=== PATIENT | male | born 1970 | race Caucasian/White ===

== ENCOUNTER → 2018-10-15 10:18 | Outpatient (CLI) | payer OTHER, SELFPAY ==
[2018-10-15 18:31] LABS: Alanine Aminotransferase 56 U/L (12-78); Albumin Level 4.2 gm/dL (3.4-5.0); Albumin/Globulin Ratio 1.3 (1.1-1.8); Alkaline Phosphatase 46 U/L (46-116); Anion Gap 13.1 mEq/L (5-15); Aspartate Amino Transferase 13 U/L (15-37); Bilirubin,Total 0.5 mg/dL (0.2-1.0); Blood Urea Nitrogen 15 mg/dL (7-18); Calcium 9.2 mg/dL (8.5-10.1); Carbon Dioxide 27 mmol/L (21.0-32.0); Chloride 105 mmol/L (98-107); Chol/HDL Ratio 6.7 (1-3.5); Cholesterol 128 mg/dL (140-200); Creatinine,Serum 1.14 mg/dL (0.70-1.30); Estimated Glomerular Filt Rate 69 ml/min (>60); GFR (African American) 83 ML/MIN (>60); Globulin 3.3 gm/dl (1.3-3.2); Glucose 91 mg/dL (74-106); HDL Cholesterol 19 mg/dL (27-67); LDL Cholesterol 74 mg/dL (0-130); Potassium 5.1 mmoL/L (3.5-5.1); Sodium 140 mmol/L (136-145); Total Protein,Serum 7.5 gm/dL (6.4-8.2); Triglycerides 173 mg/dL (30-200); VLDL Cholesterol 35 mg/dL (0-40)
== END ==
PROVIDERS: Visit Provider Nurse Practitioner Family
DX: Z00.00 Encounter for general adult medical examination without abnormal findings (principal); E78.2 Mixed hyperlipidemia; G44.1 Vascular headache, not elsewhere classified
CPT/HCPCS: 36415; 80053; 80061

== ENCOUNTER 2019-08-27 14:02 | Emergency (ER) | payer OTHER, SELFPAY ==
[2019-08-27 14:23] VITALS: BP 144/101; PULSE 65; RESP 18; TEMP 36.7; O2SAT 99; BMI 39.1
--- NOTE | 2019-08-27 14:31 | HMH.EDUTC ---
[facility] [place] Clinical Impression: Encounter for laboratory testing for COVID-19 virus Disposition: Home, Self-Care Condition on Discharge: Good Instructions: Preventing the Spread of Coronavirus Discharge Instructions Additional Instructions: Go home and self quarantine until you get your test results back and they are negative *You was given handout on how to Quarantine if you have or awaiting test results for COVID 19 FOllow up with Family doctor if no improvement or any worsening of symptoms in the next 48-72 hours Call back to the [facility] on tomorrow evening or Saturday to see if your test results are back and the result Straight to ER if any life threatening symptoms Your blood pressure was elevated in the [facility] make sure to follow up with your family doctor for further evaluation and treatment Referrals: Tariq Leonard MD [Primary Care Provider] - As needed Forms: Work/School Release Time of Disposition: 14:42 Medical Decision Making - Ramirez Inquiry Pt receiving controlled substance: No Ramirez was queried for this patient: No Vital Signs: 08/27/19 14:23 08/27/19 14:50 Temperature 98.1 F 98.1 F Temperature Source Oral Pulse Rate 65 Pulse Rate [Right Brachial] 65 Respiratory Rate 18 18 Blood Pressure 144/101 H Blood Pressure [Right Arm] 144/101 H Blood Pressure Mean [Right Arm] 115 Blood Pressure Source [Right Arm] Automatic Cuff Blood Pressure Position [Right Arm] Sitting 02 Sat by Pulse Oximetry 99 Oxygen Delivery Method Room Air Orders (Tests/Meds): ORDERS Category Date Time Status SARS-CoV-2, [facility] Stat Lab 08/27/19 14:21 Ordered [facility] [place] HPI - General Stated complaint: wants to be tested for covid Time Seen by Provider: 08/27/19 14:31 Mode of Arrival: Ambulatory Source of Information: Patient Limitations: No Limitations Description of Symptoms (Recalled from Triage Doc. by RN): PATIENT IS REQUESTING COVID TEST. STATES HE PLAYED GOLF WITH A FRIEND ON 08/15/19; THAT FRIEND WAS TESTED FOR COVID ON 08/25/19 AND WAS POSITIVE. HE HAS NOT BEEN AROUND THAT FRIEND SINCE 08/15/19, HOWEVER HAS SECONDARY EXPOSURE. PATIENT IS ASYMPTOMATIC HEENT Symptoms (Recalled from RN notes): No Resp Symptoms (Recalled from RN notes): No Skin Symptoms (Recalled from RN notes): No MS Symptoms (Recalled from RN notes): No Functional Status (Recalled from RN notes): WNL - History of Present Illness Provider Complaint: Patient states that he played golf with a kar on 08/15/19 that wasnt having any symptoms but on 08/25/19 was tested for COVID and was positive State that he hasnt been around the kar since the but has been around others that has been within close proximity to him States that he wants to get tested for COVID but not having any symptoms at this time - Related Data Home Medications Medication Instructions Recorded Confirmed aspirin 81 mg tablet,delayed 81 mg PO DAILY 12/02/17 03/26/19 release atorvastatin 20 mg tablet 20 mg PO DAILY 12/02/17 03/26/19 citalopram 20 mg tablet 20 mg PO DAILY 12/02/17 03/26/19 fenofibrate 50 mg capsule 50 mg PO DAILY 12/02/17 03/26/19 propranolol 20 mg tablet 20 mg PO BID 12/02/17 03/26/19 fenofibric acid (choline) 135 mg 135 mg PO DAILY cap 03/26/19 03/26/19 capsule,delayed release Previous Rx's Medication Instructions Recorded amoxicillin 500 mg capsule 500 mg PO Q12H 10 Days #20 cap 03/26/19 oiutthqnartumgv-fxdwdxbyoctdnwr-BB 10 ml PO Q4-6H PRN 7 Days #118 ml 03/26/19 2 mg-30 mg-10 mg/5 mL oral syrup Allergies Allergy/AdvReac Type Severity Reaction Status Date / Time bee pollen Allergy Verified 03/26/19 19:07 poison maurilio extract Allergy Verified 03/26/19 19:07 - Worker's Comp Is this a Worker's Comp case?: No [facility] History - Hepatitis A Screen Drug use history?: No High risk sexual behaviors?: No History of sexually transmitted infection?: No Currently employed?: No Childcare worker?: No Do you have indoor plumbing?: Yes D
[2019-08-27 14:50] VITALS: BP 144/101; PULSE 65; RESP 18; TEMP 36.7; O2SAT 99
[2019-08-27 14:54] VITALS: BP 125/100
[2019-08-29 13:48] LABS: Covid-19 Nasal PCR Sendout Lex Not Detected
== END 2019-08-27 14:55 | disposition home or self-care (01) ==
PROVIDERS: Emergency Provider Nurse Practitioner; PCP Internal Medicine Adolescent Medicine
DX: Z03.818 Encounter for observation for suspected exposure to other biological agents ruled out (principal)
CPT/HCPCS: 99202; U0004

== ENCOUNTER → 2020-10-04 07:04 | Outpatient (CLI) | payer OTHER, SELFPAY ==
[2020-10-04 08:17] LABS: Basophils % 0.5 % (0.1-2.0); Eosinophils # 0.1 K/mm3 (0.0-0.4); Eosinophils % 1.2 % (0.1-12.0); Hematocrit 40.2 % (42.0-52.0); Hemoglobin 13.4 g/dL (14.1-18.0); Lymphocytes # 3.6 K/mm3 (0.7-4.5); Lymphocytes % 48.1 % (10-50); Mean Corpuscular HGB Conc 33.2 g/dL (31.8-35.4); Mean Corpuscular Hemoglobin 30.2 pg (27.0-31.2); Mean Platelet Volume 7.8 fl (7.4-10.4); Monocytes # 0.5 K/mm3 (0.1-1.0); Monocytes % 6.9 % (1.7-9.3); Neutrophils # 3.3 K/mm3 (1.8-7.8); Neutrophils % 43.3 % (37.0-80.0); Platelet Count 284 K/mm3 (142-424); Red Blood Count 4.42 M/mm3 (4.60-6.20); Red Cell Distribution Width 13.2 % (11.5-17.5); White Blood Count 7.6 K/mm3 (4.8-10.8)
[2020-10-04 08:40] LABS: Chloride 107 mmol/L (98-107); Potassium 4.3 mmoL/L (3.5-5.1); Sodium 139 mmol/L (136-145)
[2020-10-04 08:42] LABS: Blood Urea Nitrogen 22 mg/dl (9-20); Estimated Glomerular Filt Rate 71 ml/min (>60); GFR (African American) 86 ML/MIN (>60)
[2020-10-04 08:43] LABS: Alanine Aminotransferase 27 U/L (12-78); Albumin Level 4.1 g/dl (3.5-5.0); Albumin/Globulin Ratio 1.5 (1.1-1.8); Alkaline Phosphatase 49 U/L (38-126); Anion Gap 13.3 mEq/L (5-15); Aspartate Amino Transferase 14 U/L (17-59); Bilirubin,Total 0.6 mg/dl (0.2-1.3); Calcium 9.1 mg/dl (8.4-10.2); Carbon Dioxide 23 mmol/L (22.0-30.0); Cholesterol 119 mg/dl (140-200); Globulin 2.7 g/dL (1.3-3.2); Glucose 109 mg/dl (74-100); Total Protein,Serum 6.8 g/dl (6.3-8.2); Triglycerides 276 mg/dl (30-150); VLDL Cholesterol 55 mg/dL (0-40)
[2020-10-04 08:44] LABS: Chol/HDL Ratio 6.3 (1-3.5); HDL Cholesterol 19 mg/dl (40-60)
[2020-10-04 08:54] LABS: Direct LDL Cholesterol 59.99 mg/dL (100-129)
[2020-10-04 09:14] LABS: Thyroid Stimulating Hormone 2.55 uIU/mL (0.465-4.68)
[2020-10-05 12:27] LABS: Testosterone,Total 286 ng/dL (264-916)
== END ==
PROVIDERS: Visit Provider Nurse Practitioner Family
DX: Z00.00 Encounter for general adult medical examination without abnormal findings (principal); E78.2 Mixed hyperlipidemia; G44.1 Vascular headache, not elsewhere classified; R68.82 Decreased libido; N52.9 Male erectile dysfunction, unspecified
CPT/HCPCS: 36415; 80053; 80061; 84403; 84443; 85025

== ENCOUNTER → 2021-02-06 07:45 | Outpatient (CLI) | payer OTHER, SELFPAY | PROVIDERS: Visit Provider Surgery | DX: Z01.812 Encounter for preprocedural laboratory examination (principal); Z11.52 Encounter for screening for COVID-19; Z12.11 Encounter for screening for malignant neoplasm of colon | CPT/HCPCS: C9803; U0003; U0005 ==

== ENCOUNTER 2021-02-08 06:28 | Day surgery (SDC) | payer OTHER, SELFPAY ==
[2021-01-31 10:27] VITALS: BMI 39.1
[2021-02-08] VITALS (7 sets, daily range): BP systolic 128–145; BP diastolic 81–89; PULSE 46–63; RESP 16–18; TEMP 36.1–36.6; O2SAT 91–98
--- NOTE | 2021-02-08 07:01 | P.PN_ITS ---
[facility] Anesthesia Checklist - Patient Identification Patient Identification: Arm Band - Structural Data Admitted From: Home Planned Operative Procedure/s: Colonoscopy Consent for Planned Operative Procedure(s) Verified: Yes - NPO Status Verified Time NPO: 00:00 - Airway Assessment C-Spine Mobility Assessed: Yes TMJ Mobility Assessed: Yes Dentition: Good Dentition - Neurological Assessment Level of Consciousness: Awake Hx Seizures: No Numbness or tingling in extremities: No - Anesthesia Plan Anesthesia Risk discussed: Yes Anesthesia Plan: Verified ASA Class: II Anesthesia Type: MAC [facility] History I have reviewed the patient's past medical history: Yes Medical History: Reports:: Anxiety, Hyperlipidemia, Hypertension, Migraine Denies:: Cancer, Diabetes Mellitus Type 1, Diabetes Mellitus Type 2, Internal Pacemaker, MRSA, Seizures *Have you ever received a pneumonia vaccine?: No *Have you received a flu vaccine this season?: Yes Anesthesia experience/problems:: None Other Surgeries: Yes: No Previous Surgery, Cholecystectomy. No: Pacemaker Amputation: No Fractures: Yes - *Social History Last grade of school completed: Advanced degree Smoking Status: Never smoker Alcohol Intake: current Alcohol Intake Frequency:: holidays/special occasions only Substance Use Type: denies use *Occupational Status:: employed Housing: house Household Members: family *Travel in the last 8 weeks: None - Psychiatric History Pschychiatric History:: Reports:: Anxiety Family Hx:: No significant family history
--- NOTE | 2021-02-08 08:02 | HMH.SCOPE ---
- Procedure: Date: 02/08/21 Patient Date of :: 1970 Procedure Performed:: Total colonoscopy to terminal ileum with polypectomy x3 using snare Indications:: Patient is a 50-year-old male referred by Dr. Hammonds for initial screening colonoscopy Performing Provider:: Franky Solorio MD Referring Provider:: Tariq Leonard MD Sedation:: MAC sedation Procedure:: Patient was taken to endoscopy procedure room. He was positioned in lateral decubitus position. Adequate intravenous sedation was achieved with anesthesia titration of propofol. Variable stiffness Olympus colonoscope was inserted via the anus. It was advanced to the cecum with some minor difficulty due to some floppiness redundancy of the sigmoid colon. Ultimately the cecum was intubated. Ileocecal valve and appendiceal orifice were clearly identified. Colonoscope was advanced into the terminal ileum which appeared grossly normal. Colonic preparation was good and visualization was good. Colonoscope was slowly withdrawn through the colon with careful surveillance. In the proximal transverse colon distal to the hepatic flexure there was a moderate adenomatous polyp removed with cold cutting snare. In the descending colon there was a tiny diminutive polyp removed with cold snare. In the sigmoid colon there was a moderate adenomatous appearing polyp removed with cold snare. Retroflexion within the rectum revealed nonbleeding internal hemorrhoids. Colonoscope was withdrawn. Findings:: Polyps as noted above Specimens:: Polyps Recommendations:: Pending pathology repeat colonoscopy likely 3 years Complications:: None immediately apparent Estimated blood obtained (mL): 3
== END 2021-02-08 09:05 | disposition home or self-care (01) ==
LOC: OUTP 06:29
PROVIDERS: PCP Internal Medicine Adolescent Medicine; Visit Provider Surgery
PROC: 0DJD8ZZ Inspection of Lower Intestinal Tract, Via Natural or Artificial Opening Endoscopic (ICD-10-PCS; CPT 45385; principal; 2021-02-08 07:30)
DX: Z12.11 Encounter for screening for malignant neoplasm of colon (principal); K63.5 Polyp of colon; K56.2 Volvulus; K64.0 First degree hemorrhoids; F41.9 Anxiety disorder, unspecified; E78.5 Hyperlipidemia, unspecified; I10 Essential (primary) hypertension; G43.909 Migraine, unspecified, not intractable, without status migrainosus; Z79.82 Long term (current) use of aspirin; Z79.899 Other long term (current) drug therapy
CPT/HCPCS: 45385

== ENCOUNTER → 2021-03-06 13:40 | Outpatient (CLI) | payer OTHER, SELFPAY | PROVIDERS: PCP Radiology Diagnostic Radiology; Visit Provider Nurse Practitioner | DX: U07.1 COVID-19 (principal) | CPT/HCPCS: C9803; U0003; U0005 ==

== ENCOUNTER → 2021-10-03 07:35 | Outpatient (CLI) | payer OTHER, SELFPAY ==
[2021-10-03 08:49] LABS: Basophils # 0.1 K/mm3 (0-0.2); Basophils % 1.2 % (0.1-2.0); Eosinophils # 0.2 K/mm3 (0.0-0.4); Eosinophils % 2.5 % (0.1-12.0); Hematocrit 41.6 % (42.0-52.0); Hemoglobin 13.5 g/dL (14.1-18.0); Lymphocytes # 2.9 K/mm3 (0.7-4.5); Lymphocytes % 48.9 % (10-50); Mean Corpuscular HGB Conc 32.4 g/dL (31.8-35.4); Mean Corpuscular Hemoglobin 31.1 pg (27.0-31.2); Mean Corpuscular Volume 95.9 fl (80-94); Mean Platelet Volume 8.2 fl (7.4-10.4); Monocytes # 0.4 K/mm3 (0.1-1.0); Monocytes % 7.2 % (1.7-9.3); Neutrophils # 2.4 K/mm3 (1.8-7.8); Neutrophils % 40.2 % (37.0-80.0); Platelet Count 273 K/mm3 (142-424); Red Blood Count 4.33 M/mm3 (4.60-6.20); White Blood Count 5.9 K/mm3 (4.8-10.8)
[2021-10-03 09:03] LABS: Alanine Aminotransferase 41 U/L (12-78); Albumin Level 3.9 g/dl (3.5-5.0); Albumin/Globulin Ratio 1.5 (1.1-1.8); Alkaline Phosphatase 51 U/L (38-126); Anion Gap 9.5 mEq/L (5-15); Aspartate Amino Transferase 19 U/L (17-59); Bilirubin,Total 0.3 mg/dl (0.2-1.3); Blood Urea Nitrogen 17 mg/dl (9-20); Calcium 8.9 mg/dl (8.4-10.2); Carbon Dioxide 28 mmol/L (22.0-30.0); Chloride 107 mmol/L (98-107); Chol/HDL Ratio 6.2 (1-3.5); Cholesterol 123 mg/dl (140-200); Estimated Glomerular Filt Rate 79 ml/min (>60); GFR (African American) 96 ML/MIN (>60); Globulin 2.6 g/dL (1.3-3.2); Glucose 108 mg/dl (74-100); HDL Cholesterol 20 mg/dl (40-60); Potassium 4.5 mmoL/L (3.5-5.1); Sodium 140 mmol/L (136-145); Total Protein,Serum 6.5 g/dl (6.3-8.2); Triglycerides 179 mg/dl (30-150); VLDL Cholesterol 36 mg/dL (0-40)
[2021-10-03 09:21] LABS: Hemoglobin A1C 5.8 % (4.0-6.0)
[2021-10-03 09:33] LABS: Thyroid Stimulating Hormone 2.15 uIU/mL (0.465-4.68)
[2021-10-04 08:33] LABS: Direct LDL Cholesterol 64 mg/dL (100-129)
[2021-10-04 11:37] LABS: Vitamin B12 249 pg/mL (239-931)
[2021-10-04 11:39] LABS: Folate 5.25 ng/mL
[2021-10-04 11:41] LABS: Ferritin 139 ng/ml (17.9-464)
== END ==
PROVIDERS: PCP Internal Medicine Adolescent Medicine; Visit Provider Nurse Practitioner Family
DX: Z00.00 Encounter for general adult medical examination without abnormal findings (principal); E78.2 Mixed hyperlipidemia; E66.9 Obesity, unspecified; Z68.41 Body mass index [BMI] 40.0-44.9, adult; Z79.899 Other long term (current) drug therapy
CPT/HCPCS: 36415; 80053; 80061; 82607; 82728; 82746; 83036; 84443; 85025

== ENCOUNTER → 2022-10-17 08:18 | Outpatient (CLI) | payer BC, SELFPAY ==
[2022-10-17 09:00] LABS: Basophils % 0.6 % (0.1-2.0); Eosinophils # 0.2 K/mm3 (0.0-0.4); Eosinophils % 3.5 % (0.1-12.0); Hematocrit 44.3 % (42.0-52.0); Hemoglobin 14.4 g/dL (14.1-18.0); Lymphocytes # 2.9 K/mm3 (0.7-4.5); Lymphocytes % 45.3 % (10-50); Mean Corpuscular HGB Conc 32.5 g/dL (31.8-35.4); Mean Corpuscular Hemoglobin 30.3 pg (27.0-31.2); Mean Corpuscular Volume 93.5 fl (80-94); Mean Platelet Volume 8.3 fl (7.4-10.4); Monocytes # 0.4 K/mm3 (0.1-1.0); Monocytes % 6.5 % (1.7-9.3); Neutrophils # 2.8 K/mm3 (1.8-7.8); Neutrophils % 44.1 % (37.0-80.0); Platelet Count 239 K/mm3 (142-424); Red Blood Count 4.74 M/mm3 (4.60-6.20); White Blood Count 6.4 K/mm3 (4.8-10.8)
[2022-10-17 09:43] LABS: Chloride 107 mmol/L (98-107); Potassium 4.7 mmoL/L (3.5-5.1); Sodium 140 mmol/L (136-145)
[2022-10-17 09:46] LABS: Alanine Aminotransferase 35 U/L (12-78); Albumin Level 3.7 g/dl (3.5-5.0); Albumin/Globulin Ratio 1.4 (1.1-1.8); Alkaline Phosphatase 52 U/L (38-126); Anion Gap 14.7 mEq/L (5-15); Aspartate Amino Transferase 18 U/L (17-59); Bilirubin,Total 0.6 mg/dl (0.2-1.3); Blood Urea Nitrogen 16 mg/dl (9-20); Carbon Dioxide 23 mmol/L (22.0-30.0); Cholesterol 122 mg/dl (140-200); Estimated Glomerular Filt Rate 79 ml/min (>60); GFR (African American) 95 ML/MIN (>60); Globulin 2.7 g/dL (1.3-3.2); Total Protein,Serum 6.4 g/dl (6.3-8.2); Triglycerides 147 mg/dl (30-150); VLDL Cholesterol 29 mg/dL (0-40)
[2022-10-17 09:47] LABS: Calcium 9.1 mg/dl (8.4-10.2); Chol/HDL Ratio 6.4 (1-3.5); Glucose 107 mg/dl (74-100); HDL Cholesterol 19 mg/dl (40-60)
[2022-10-17 10:17] LABS: Thyroid Stimulating Hormone 1.39 uIU/mL (0.465-4.68)
[2022-10-17 11:14] LABS: Direct LDL Cholesterol 77.69 mg/dL (100-129)
[2022-10-17 13:14] LABS: Vitamin B12 300 pg/mL (239-931)
[2022-10-17 17:38] LABS: Hemoglobin A1C 5.8 % (4.0-6.0)
[2022-10-18 10:51] LABS: Insulin Level Total 41.6 uIU/mL (2.6-24.9)
== END ==
PROVIDERS: PCP Nurse Practitioner Family; Visit Provider Nurse Practitioner Family
DX: Z00.00 Encounter for general adult medical examination without abnormal findings (principal); R55 Syncope and collapse; R61 Generalized hyperhidrosis; E66.9 Obesity, unspecified; Z68.41 Body mass index [BMI] 40.0-44.9, adult
CPT/HCPCS: 80053; 80061; 82533; 82607; 83036; 83525; 84443; 85025

== ENCOUNTER 2024-01-29 17:47 | Emergency (ER) | payer BC, SELFPAY ==
[2024-01-29 18:30] VITALS: BP 134/84; PULSE 66; RESP 17; TEMP 37.3; O2SAT 96; BMI 36.9
--- NOTE | 2024-01-29 18:43 | EXP.UTC ---
Discharge Plan Disposition Patient Disposition: Home, Self-Care Condition: Good Prescriptions Prescriptions: New benzonatate 100 mg capsule 100 mg PO TIDP PRN (Reason: Cough) Qty: 30 0RF cefdinir 300 mg capsule 300 mg PO BID 10 Days Qty: 20 0RF No Action aspirin [Adult Low Dose Aspirin] 81 mg tablet,delayed release (DR/EC) 81 mg PO DAILY atorvastatin [Lipitor] 20 mg tablet 20 mg PO DAILY citalopram 20 mg tablet 20 mg PO DAILY fenofibrate 50 mg capsule 50 mg PO DAILY propranolol 20 mg tablet 20 mg PO DAILY tadalafil 20 mg tablet 20 mg PO DAILY Referrals Follow up/Referrals: Mellisa Patten APRN [Primary Care Provider] - See instructions Activity Restrictions/Add. Instructions Additional Instructions/Restrictions: Drink plenty of fluids. Take tylenol or ibuprofen for pain or fever. Take the medications as directed. Follow up with your regular doctor. GO TO THE ER FOR ANY WORSENING SYMPTOMS Clinical Impressions Clinical Impression: Acute bronchitis Instructions Patient Instructions: Acute Bronchitis, DI for Acute Bronchitis Print Language Print Language: Croatian Discharge ED Provider: Ravi Bonds [facility] General Stated complaint: congestion cough Mode of Arrival: Ambulatory Source of Information: Patient Limitations: No Limitations Time Seen by Provider: 01/29/24 18:42 Description of Symptoms (Recalled from Triage Doc. by RN): PATIENT C/O COUGH AND CONGESTION THAT STARTED YESTERDAY HEENT Symptoms (Recalled from RN notes): Yes Resp Symptoms (Recalled from RN notes): Yes Skin Symptoms (Recalled from RN notes): No MS Symptoms (Recalled from RN notes): No Functional Status (Recalled from RN notes): WNL Related Data Home Medications ?Medication ?Instructions ?Recorded ?Confirmed aspirin 81 mg tablet,delayed 81 mg PO DAILY Heart health 12/02/17 01/29/24 release (Adult Low Dose Aspirin) atorvastatin 20 mg tablet (Lipitor) 20 mg PO DAILY Cholesterol 12/02/17 01/29/24 citalopram 20 mg tablet 20 mg PO DAILY Depression 12/02/17 01/29/24 fenofibrate 50 mg capsule 50 mg PO DAILY * 12/02/17 01/29/24 propranolol 20 mg tablet 20 mg PO DAILY bp 12/02/17 01/29/24 tadalafil 20 mg tablet 20 mg PO DAILY 01/29/24 01/29/24 Previous Rx's ?Medication ?Instructions ?Recorded benzonatate 100 mg capsule 100 mg PO TIDP PRN Cough #30 caps 01/29/24 cefdinir 300 mg capsule 300 mg PO BID 10 days #20 caps 01/29/24 Allergies Allergy/AdvReac Type Severity Reaction Status Date / Time bee pollen Allergy Verified 02/27/21 10:00 poison maurilio extract Allergy Verified 02/27/21 10:00 Worker's Comp Is this a Worker's Comp case?: No [facility] Disclaimer: The information contained in this section may have been updated after the patient was seen, as this information can be updated by other users. Medical History (Updated 01/29/24 @ 19:04 by Ravi Bonds APRN) Hyperlipidemia Hypertension Diabetes mellitus, type 2 Surgical History (Updated 01/29/24 @ 18:42 by Alis Serna RN) History of cholecystectomy Social History Smoking Status: Never smoker alcohol intake: current alcohol intake frequency: holidays/special occasions only substance use type: denies use current occupational status: employed Travel in the last 8 weeks: None household members: family housing: house caffeine: Yes ROS Obtained: Yes All systems reviewed & no additional complaints except as documented Constitutional Constitutional: Reports poor appetite Eyes Eyes: Reports system reviewed and no additional complaints, except as documented ENT Ears, Nose, Mouth, and Throat: Reports as per HPI Cardiovascular Cardiovascular: Reports system reviewed and no additional complaints, except as documented and Denies chest pain Respiratory Respiratory: Denies shortness of breath, Reports chest congestion, Reports cough, Denies stridor and Denies wheezing Gastrointestinal Gastrointestingal: Reports system reviewed and no additional complaints, except as documented; Denies abdominal pain, diarrhea or vomiting Musculoskeletal Musculoskeletal: Reports system reviewed and no additional complaints, except as documented and Denies arthralgias Integumentary/Breasts Skin/Breast: Reports system reviewed and no additional complaints, except as documented and Denies rash Neurologic Neurologic: Denies paresthesias Allergic/Immunologic Allergic/Immunologic: Denies wheezing Physical Exam General General appearance: alert and in no apparent distress Head Head exam: atraumatic, normocephalic and normal inspection Eye Eye exam: Present normal appearance, PERRL and EOMI ENT ENT exam: Present normal exam, normal oropharynx, mucous membranes moist, TM's normal bilaterally and normal external ear exam Neck Neck exam: Present normal inspection, full ROM and trachea midline; Absent meningismus or lymphadenopathy Chest Chest inspection: Present normal inspection and symmetric chest wall rise; Absent tenderness Respiratory Respiratory exam: Present normal lung sounds bilaterally; Absent respiratory distress Cardiovascular Cardiovascular exam: Present regular rate and normal rhythm; Absent JVD Abdominal Exam Abdominal exam: Present soft and normal bowel sounds; Absent distention, tenderness or guarding Extremities Exam Extremities exam: Present normal inspection, full ROM and normal capillary refill; Absent calf tenderness Back Exam Back exam: Present normal inspection; Absent tenderness Neurological Exam Neurological exam: Present alert and oriented X3 Psychiatric Psychiatric exam: Present normal affect and normal mood Skin Skin exam: Present warm, dry, intact and normal color Lymphatic Lymphatic Findings: no adenopathy Medical Decision Making Medical Records Medical records reviewed: No I reviewed the patient's medical records. Screening: Per USPSTF and CDC recommendations, given the prevalence of disease in our region, it is our hospital?s policy to screen for HIV and viral Hepatitis for all patients aged 18 and over and those with ongoing risk factors. Ramirez Inquiry Pt receiving controlled substance: No Vital Signs: 01/29/24 18:30 Temperature 99.2 F Temperature Source Oral Pulse Rate [Left Brachial] 66 Respiratory Rate 17 Blood Pressure [Left Arm] 134/84 Blood Pressure Mean [Left Arm] 100 Blood Pressure Source [Left Arm] Automatic Cuff Blood Pressure Position [Left Arm] Sitting 02 Sat by Pulse Oximetry 96 Oxygen Delivery Method Room Air
[2024-01-29] MEDS: DEXAMETHASONE 4MG/ML 1ML VIAL 10 MG IM (18:55)
[2024-01-29 19:06] VITALS: BP 134/84; PULSE 66; RESP 17; TEMP 37.3; O2SAT 96
== END 2024-01-29 19:08 | disposition home or self-care (01) ==
PROVIDERS: Emergency Provider Nurse Practitioner Family; PCP Nurse Practitioner Family
DX: J40 Bronchitis, not specified as acute or chronic (principal); R05.9 Cough, unspecified; R09.81 Nasal congestion; R63.8 Other symptoms and signs concerning food and fluid intake
CPT/HCPCS: 96372; 99212; G0381; J1100